=== PATIENT | male | born 1995 | race Caucasian/White ===

== ENCOUNTER 2017-03-26 08:47 | Day surgery (SDC) | payer MEDICAID ==
[~2017-03-26 08:47] MED LIST: AMOXICILLIN500 M1 PO; NORCO 5-325 TA1 EACH PO; TRAMADOL HCL50 M2 PO
== END 2017-03-26 16:00 ==
LOC: SHSB 08:47 → ORE 11:57 → PACU 13:49
PROC: 0QSH04Z Reposition Left Tibia with Internal Fixation Device, Open Approach (ICD-10-PCS; principal; 2017-03-26)
DX: S82.112A Displaced fracture of left tibial spine, initial encounter for closed fracture (principal); S83.512A Sprain of anterior cruciate ligament of left knee, initial encounter; I10 Essential (primary) hypertension; F17.210 Nicotine dependence, cigarettes, uncomplicated; Z79.899 Other long term (current) drug therapy; Z79.891 Long term (current) use of opiate analgesic; V89.2XXA Person injured in unspecified motor-vehicle accident, traffic, initial encounter
CPT/HCPCS: J0690; J2250; J2270; J3010